=== PATIENT | male | born 1940 | race Caucasian/White ===

== ENCOUNTER → 2017-07-09 | Outpatient (CLI) | payer MEDICARE, OTHER ==
[~2017-07-09] MED LIST: ASPI81TA28 PO; ATEN-175 PO; ATOR10TA88 PO; CIPR-255 PO; CPR/500 PO; FINA5TAB PO; HYDR-4330 PO; LATA0.5S OP; LISI-789 PO; METF-384 PO; METR-163 PO; MULT-190 PO; NVLNI SC; OMEG10007 PO; PHEN32.44 PO; SULF400T7 PO; novofine INJ
[2017-07-10 13:05] LABS: URINE APPEARANCE TURBID (CLEAR); URINE BILIRUBIN NEG (NEG); URINE COLOR YELLOW; URINE EPITHELIAL CELL AUTO >30 /lpf (0-5); URINE NITRITE NEG (NEG); URINE SPECIFIC GRAVITY 1.033 (1.000-1.030); UROBILINOGEN NEG (NEG)
[2017-07-10 13:14] LABS: MANUAL MICROSCOPIC REQUIRED? NO; REVIEW REQ? YES
[2017-07-10 13:31] LABS: URINE PATH CASTS 0-3 GRANULAR CASTS /lpf (0)
== END | disposition home or self-care (01) ==
LOC: C.PATHSPEC 11:00
PROVIDERS: ATTEND Urology
DX: R31.0 Gross hematuria (principal)

== ENCOUNTER 2017-07-14 18:20 | Inpatient (IN) | payer MEDICARE, OTHER ==
[~2017-07-14] VITALS: Ht 182.9 cm; Wt 69.5 kg
[~2017-07-14 18:20] MED LIST changes: -ASPI81TA28 PO; -ATEN-175 PO; -ATOR10TA88 PO; -CIPR-255 PO; -FINA5TAB PO; -HYDR-4330 PO; -LATA0.5S OP; -LISI-789 PO; -METF-384 PO; -METR-163 PO; -MULT-190 PO; -NVLNI SC; -OMEG10007 PO; -PHEN32.44 PO; -SULF400T7 PO; -novofine INJ
[2017-07-14] MEDS ORDERED: OPTIRAY 320 IV PRN (20:00)
[2017-07-14 20:36] LABS: HEMATOCRIT 29.1 % (42-52); MEAN CELL VOLUME 81.1 fL (80-100); MEAN CORPUSCULAR HEMOGLOBIN 27.3 pg (25-34); MEAN CORPUSCULAR HGB CONC 33.7 g/dl (32-36); MEAN PLATELET VOLUME 8.4 fL (7.4-10.4); PLATELET COUNT 228 K/uL (130-400); RED BLOOD COUNT 3.59 M/uL (4.7-6.1); WHITE BLOOD COUNT 9.57 K/uL (4.8-10.8)
[2017-07-14 20:53] LABS: BUN/CREATININE RATIO 17.6 (10-20); CALCIUM 8.7 mg/dl (8.5-10.1); CREATININE 0.84 mg/dl (0.60-1.40); POTASSIUM 4.7 mmol/L (3.5-5.1)
[2017-07-14 20:53] LABS: ISTAT CREATININE 0.8 mg/dl (0.6-1.3); ISTAT HEMOGLOBIN 9.9 g/dl (14.0-18.0); ISTAT IONIZED CALCIUM 1.15 mmol/l (1.12-1.32)
[2017-07-14] MEDS ORDERED: CEFTRIAXONE SOD INJ 1 GM ADDVIAL IV STA (20:56)
[2017-07-14 21:05] LABS: ACANTHOCYTES 1+; BASO % 0.4 %; BASO ABS # 0.04 K/uL (0-0.2); COMPLETE YES; EOS % 1.4 %; IG% 0.4 %; LYMPH % 20.6 %; LYMPH ABS # 1.97 K/uL (1.2-3.4); MONO % 8.7 %; NEUT % 68.5 %
[2017-07-14 21:09] LABS: URINE APPEARANCE TURBID (CLEAR); URINE COLOR DK YELLOW; URINE EPITHELIAL CELL AUTO >30 /lpf (0-5); URINE NITRITE NEG (NEG); UROBILINOGEN NEG (NEG); ZZUR CULT IF INDIC CLEAN CATCH YES
[2017-07-14 21:17] LABS: MANUAL MICROSCOPIC REQUIRED? NO; REVIEW REQ? NO
[2017-07-14 21:18] LABS: URINE BILIRUBIN NEG (NEG)
--- NOTE | 2017-07-14 22:08 | DIAGNOSTIC IMAGING REPORT ---
CT OF THE ABDOMEN AND PELVIS WITH CONTRAST CLINICAL HISTORY: Abdominal pain. COMPARISON STUDY: None. TECHNIQUE: Following IV administration of 94 mL of Optiray-320, axial images of the abdomen and pelvis were obtained from the lung bases to the proximal femurs. Images were reviewed in the axial, sagittal, and coronal planes. IV contrast was administered without complication. A dose lowering technique was utilized adhering to the principles of ALARA. CT DOSE: 282.18 mGy.cm FINDINGS: An 8 mm hypodense lateral segment hepatic lesion likely reflects a cyst. The spleen, adrenal glands, kidneys and pancreas are unremarkable with exception of mild bilateral collecting system dilatation. There is mild dilatation of the distal right ureter. There is apparent wall thickening or hyperdense material within the distal right ureter with focal dilatation. Bladder calculi measure up to 1.2 cm. Note is made of moderate wall thickening of the posterior aspect of the bladder with adjacent infiltration and a gas and fluid containing tract which likely extends from the sigmoid colon. There is extensive sigmoid diverticulosis. Note is made of a 6.2 x 5.3 cm thick-walled stool-containing abnormality along the left lateral aspect of the sigmoid colon. This contained round hyperdense foci. There is no free air. No suspicious osseous lesions are present. Prostate is mildly enlarged. There is extensive atherosclerotic plaque of the abdominal aorta. IMPRESSION: 1. Extensive sigmoid diverticulosis with mild pericolonic infiltration which suggests acute diverticulitis. Thick walled 6.2 x 5.3 cm stool containing abnormality along the left lateral aspect of the sigmoid colon which could reflect a giant sigmoid diverticulum or less likely walled off abscess. A few adjacent gas and fluid containing abnormalities, one of which extends to the posterior wall of the bladder and is suspicious for a developing colovesicular fistula. Associated moderate posterior bladder wall thickening. 2. Multiple bladder calculi. Mild bilateral collecting system dilatation and focal dilatation of the distal right ureter. Apparent thickening versus hyperdense material within the distal right ureter. This finding is nonspecific and may be infectious however a urothelial lesion could appear similar. This could be correlated with urinalysis and urine cytology. 3. Mild enlargement of the prostate. Electronically signed by: Kamari Carney M.D. 07/14/2017 10:07 PM Dictated Date/Time: 07/14/2017 9:52 PM
[2017-07-14] MEDS ORDERED: HYDROmorphone INJ 1 MG/ML SYR IV STA (22:09)
[2017-07-14] MEDS ORDERED: HYDROmorphone INJ 0.5 MG/0.5 ML SYR ONE (22:18)
[2017-07-14] MEDS ORDERED: METRONIDAZOLE 500MG / 100ML NSS IV STA (22:18)
[2017-07-14] MEDS ORDERED: ATOR10TA88 PO (23:02)
[2017-07-14] MEDS ORDERED: ASPI81TA28 PO (23:02)
[2017-07-14] MEDS ORDERED: ATEN-175 PO (23:02)
[2017-07-14] MEDS ORDERED: LATA0.5S OP (23:03)
[2017-07-14] MEDS ORDERED: LISI-789 PO (23:03)
[2017-07-14] MEDS ORDERED: OMEG10007 PO (23:03)
[2017-07-14] MEDS ORDERED: METF-384 PO (23:03)
[2017-07-14] MEDS ORDERED: FINA5TAB PO (23:03)
[2017-07-14] MEDS ORDERED: PHEN32.44 PO (23:05)
[2017-07-14] MEDS ORDERED: MULT-190 PO (23:05)
[2017-07-14] MEDS ORDERED: HYDR-4330 PO (23:05)
[2017-07-14] MEDS ORDERED: SULF400T7 PO (23:07)
[2017-07-14] MEDS ORDERED: novofine INJ (23:09)
--- NOTE | 2017-07-14 23:14 | EMERGENCY ROOM VISIT NOTE ---
History Report prepared by Marijaibchang: Mariana Saucedo Under the Supervision of: Dr. Jose Albert D.O. First contact with patient: 19:38 Chief Complaint: URINARY SYMPTOMS Stated Complaint: UTI Nursing Triage Summary: C/o pain from navel to groin, hurts to stand and pain with urination. Currently on ABX. On cirpro and taking Charlotte for pain. History of Present Illness The patient is a 76 year old male who presents to the Emergency Room with complaints of persistent urinary symptoms for the past 3 weeks. He is accompanied by his and daughter. He has been experiencing increased urinary frequency, incomplete emptying and dysuria for the past 3 weeks. He initially saw the [facility] in [place] and was placed on Bactrim, which he has been taking for the past 3 weeks. Last week, he saw. Dr. Grijalva and had a urine sample taken. This past Friday, 2 days ago, the patient was seen at [facility], in [place], [place] and placed on Cipro for a UTI. Since then , he has developed pain in his abdomen, from his navel to his groin. He has tried taking Charlotte with no relief. Pt denies headache, change in vision, fevers , chest pain, shortness of breath, nausea, vomiting, diarrhea, melena or penile discharge. 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 A total of 10 systems reviewed and were otherwise negative. 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 (2) History of recurrent UTI (urinary tract infection) Social History Smoking Status: Current Every Day Smoker Alcohol Use: occasionally Drug Use: none Marital Status: Housing Status: lives with family Occupation Status: retired Current/Historical Medications Scheduled Aspirin (Aspirin Ec), 81 MG PO DAILY Atenolol (Tenormin), 100 MG PO DAILY Atorvastatin (Lipitor), 10 MG PO DAILY Ciprofloxacin (Ciprofloxacin HCl), 500 MG PO BID Finasteride (Proscar), 5 MG PO DAILY Fish Oil (Dexter-3), 1,200 MG PO DAILY Latanoprost (Xalatan 0.005% Oph Heidi), 1 DROPS OP HS Lisinopril (Zestril), 2.5 MG PO DAILY Metformin Hcl (Glucophage), 1,000 MG PO BID Ocuvite Preservision (Ocuvite Preservision), 1 TAB PO BID Phenobarbital (Phenobarbital), 2 TABS PO BID Sulfamethoxazole-Trimethoprim (Bactrim 400MG/80MG), 1 TAB PO DAILY [novofine], 8 UNITS INJ DAILY Scheduled PRN Hydrocodone-Acetaminophen (Lortab 5-325 mg), 1 TAB PO QID PRN for Pain Allergies Coded Allergies: Penicillins (Verified Allergy, Unknown, HIVES, 07/14/17) Physical Exam Vital Signs Date Time Temp Pulse Resp B/P (MAP) Pulse Ox O2 Delivery O2 Flow Rate FiO2 07/14/17 22:31 70 20 132/73 07/14/17 20:59 75 20 127/55 07/14/17 18:51 37.2 63 16 107/53 92 Room Air Physical Exam GENERAL: Patient is sitting up in bed, alert, disheveled appearing, well nourished, no distress, non-toxic EYE EXAM: normal conjunctiva OROPHARYNX: no exudate, no erythema, lips, buccal mucosa, and tongue normal and mucous membranes are moist NECK: supple, no nuchal rigidity, no adenopathy, non-tender LUNGS: Clear to auscultation. Normal chest wall mechanics HEART: no murmurs, S1 normal and S2 normal ABDOMEN: abdomen soft, minimal tenderness in suprapubic region, normo-active bowel sounds, no masses, no rebound or guarding. BACK: Back is symmetrical on inspection and there is no deformity, no midline tenderness, no CVA tenderness. SKIN: no rashes and no bruising UPPER EXTREMITIES: upper extremities are grossly normal. LOWER EXTREMITIES: No pitting edema. NEURO EXAM: Normal sensorium, cranial nerves II-XII intact, normal speech, no weakness of arms, no weakness of legs. Gross sensation intact. Medical Decision & Procedures ER Provider Diagnostic Interpretation: Radiology results as stated below per my review and the radiologist's interpretation: CT OF THE ABDOMEN AND PELVIS WITH CONTRAST CLINICAL HISTORY: Abdominal pain. COMPARISON STUDY: None. TECHNIQUE: Following IV administration of 94 mL of Optiray-320, axial images of the abdomen and pelvis were obtained from the lung bases to the proximal femurs. Images were reviewed in the axial, sagittal, and coronal planes. IV contrast was administered without complication. A dose lowering technique was utilized adhering to the principles of ALARA. CT DOSE: 282.18 mGy.cm FINDINGS: An 8 mm hypodense lateral segment hepatic lesion likely reflects a cyst. The spleen, adrenal glands, kidneys and pancreas are unremarkable with exception of mild bilateral collecting system dilatation. There is mild dilatation of the distal right ureter. There is apparent wall thickening or hyperdense material within the distal right ureter with focal dilatation. Bladder calculi measure up to 1.2 cm. Note is made of moderate wall thickening of the posterior aspect of the bladder with adjacent infiltration and a gas and fluid containing tract which likely extends from the sigmoid colon. There is extensive sigmoid diverticulosis. Note is made of a 6.2 x 5.3 cm thick-walled stool-containing abnormality along the left lateral aspect of the sigmoid colon. This contained round hyperdense foci. There is no free air. No suspicious osseous lesions are present. Prostate is mildly enlarged. There is extensive atherosclerotic plaque of the abdominal aorta. IMPRESSION: 1. Extensive sigmoid diverticulosis with mild pericolonic infiltration which suggests acute diverticulitis. Thick walled 6.2 x 5.3 cm stool containing abnormality along the left lateral aspect of the sigmoid colon which could reflect a giant sigmoid diverticulum or less likely walled off abscess. A few adjacent gas and fluid containing abnormalities, one of which extends to the posterior wall of the bladder and is suspicious for a developing colovesicular fistula. Associated moderate posterior bladder wall thickening. 2. Multiple bladder calculi. Mild bilateral collecting system dilatation and focal dilatation of the distal right ureter. Apparent thickening versus hyperdense material within the distal right ureter. This finding is nonspecific and may be infectious however a urothelial lesion could appear similar. This could be correlated with urinalysis and urine cytology. 3. Mild enlargement of the prostate. Electronically signed by: Kamari Carney M.D. 07/14/2017 10:07 PM Laboratory Results 07/14/17 20:05 Red Blood Count 3.59, Mean Corpuscular Volume 81.1, Mean Corpuscular Hemoglobin 27.3, Mean Corpuscular Hemoglobin Concent 33.7, Mean Platelet Volume 8.4, Neutrophils (%) (Auto) 68.5, Lymphocytes (%) (Auto) 20.6, Monocytes (%) (Auto) 8.7, Eosinophils (%) (Auto) 1.4, Basophils (%) (Auto) 0.4, Neutrophils # (Auto) 6.56, Lymphocytes # (Auto) 1.97, Monocytes # (Auto) 0.83, Eosinophils # (Auto) 0.13, Basophils # (Auto) 0.04 07/14/17 20:05 Test 07/14/17 00:00 07/14/17 20:05 07/14/17 20:39 07/14/17 22:53 Urine Color DK YELLOW Urine Appearance TURBID (CLEAR) Urine pH 5.0 (4.5-7.5) Urine Specific [place] 1.020 (1.000-1.030) Urine Protein 1+ (NEG) Urine Glucose (UA) NEG (NEG) Urine Ketones NEG (NEG) Urine Occult Blood 1+ (NEG) Urine Nitrite NEG (NEG) Urine Bilirubin NEG (NEG) Urine Urobilinogen NEG (NEG) Urine Leukocyte Esterase LARGE (NEG) Urine WBC (Auto) >30 /hpf (0-5) Urine RBC (Auto) 5-10 /hpf (0-4) Urine Hyaline Casts (Auto) 1-5 /lpf (0-5) Urine Epithelial Cells (Auto) >30 /lpf (0-5) Urine Bacteria (Auto) 4+ (NEG) White Blood Count 9.57 K/uL (4.8-10.8) Red Blood Count 3.59 M/uL (4.7-6.1) Hemoglobin 9.8 g/dL (14.0-18.0) Hematocrit 29.1 % (42-52) Mean Corpuscular Volume 81.1 fL (80-100) Mean Corpuscular Hemoglobin 27.3 pg (25-34) Mean Corpuscular Hemoglobin Concent 33.7 g/dl (32-36) Platelet Count 228 K/uL (130-400) Mean Platelet Volume 8.4 fL (7.4-10.4) Neutrophils (%) (Auto) 68.5 % Lymphocytes (%) (Auto) 20.6 % Monocytes (%) (Auto) 8.7 % Eosinophils (%) (Auto) 1.4 % Basophils (%) (Auto) 0.4 % Neutrophils # (Auto) 6.56 K/uL (1.4-6.5) Lymphocytes # (Auto) 1.97 K/uL (1.2-3.4) Monocytes # (Auto) 0.83 K/uL (0.11-0.59) Eosinophils # (Auto) 0.13 K/uL (0-0.5) Basophils # (Auto) 0.04 K/uL (0-0.2) RDW Standard Deviation 49.5 fL (36.4-46.3) RDW Coefficient of Variation 16.5 % (11.5-14.5) Immature Granulocyte % (Auto) 0.4 % Immature Granulocyte # (Auto) 0.04 K/uL (0.00-0.02) Acanthocytes 1+ Est Creatinine Clear Calc Drug Dose 74.8 ml/min Estimated GFR () 97.2 Estimated GFR (Non- 83.9 BUN/Creatinine Ratio 17.6 (10-20) Calcium Level 8.7 mg/dl (8.5-10.1) Total Bilirubin 0.2 mg/dl (0.2-1) Direct Bilirubin 0.1 mg/dl (0-0.2) Aspartate Amino Transf (AST/SGOT) 10 U/L (15-37) Alanine Aminotransferase (ALT/SGPT) 14 U/L (12-78) Alkaline Phosphatase 79 U/L (45-117) Total Protein 7.1 gm/dl (6.4-8.2) Albumin 2.6 gm/dl (3.4-5.0) Lipase 106 U/L (73-393) Bedside Hemoglobin 9.9 g/dl (14.0-18.0) Bedside Hematocrit 29 % (42-52) Bedside Sodium 131 mEq/L (135-144) Bedside Potassium 4.7 mEq/L (3.3-5.0) Bedside Chloride 95 mEq/L (101-112) Bedside Total CO2 24 mEq/l (24-31) Anion Gap 18.0 mmol/L (16-25) Bedside Blood Urea Nitrogen 16 mg/dl (7-18) Bedside Creatinine 0.8 mg/dl (0.6-1.3) Bedside Glucose (other) 154 mg/dl (70-99) Bedside Ionized Calcium (Adeola) 1.15 mmol/l (1.12-1.32) Laboratory results per my review. Medications Administered Medications (Trade) Dose Ordered Sig/Sarthak Route Start Time Stop Time Status Last Admin Dose Admin Ceftriaxone Sodium (Rocephin Inj) 1 gm NOW STAT IV 07/14/17 20:56 07/14/17 20:57 DC 07/14/17 21:12 1 GM Hydromorphone HCl (Dilaudid Inj) 0.5 mg STK-MED ONCE .ROUTE 07/14/17 22:18 07/14/17 22:19 DC 07/14/17 22:25 0.5 MG Metronidazole (Flagyl / Nss) 500 mg NOW STAT IV 07/14/17 22:18 07/14/17 22:19 DC 07/14/17 22:31 500 MG ED Course ED COURSE: Vital signs were reviewed and showed normal vitals. The patients medical record was reviewed The above diagnostic studies were performed and reviewed. ED treatments and interventions as stated above. 1940: The patient was evaluated in room C7. A complete history and physical examination was performed. 1999: A urine culture taken on 07/10 showed greater than 1000 lactobacilli cells. 2055: Rocephin 1 gm IV. 2204: I reevaluated the patient. He is resting comfortably. 0: I discussed the patients case with Dr. Hernandez, [facility] General Surgery. The patient will be further evaluated. 2234: I discussed the patients case with Dr. Ibarra, [facility] Hospitalist. The patient will be further evaluated. 0: Upon reevaluation, the patient is feeling well and resting comfortably. I discussed my findings with the patient and he understands and agrees with the treatment plan. Based on the patients age, coexisting illnesses, exam and lab findings the decision to treat as an inpatient was made. The patient remained stable while under my care. The patient will be evaluated for further management. Medical Decision Differential diagnoses includes but is not limited to gastritis, peptic ulcer disease, GERD, gallbladder disease, pancreatitis, small bowel obstruction, acute coronary syndrome, pericarditis, ischemic bowel, irritable bowel disease, irritable bowel syndrome, appendicitis, diverticulitis, malignancy, hernia, urinary tract infection, torsion, perforation, trauma, infectious. Patient is a 76-year-old male who presents with dysuria, urinary frequency and urinary urgency for the past 3 weeks. The symptoms have been worsening. He's been on Bactrim for 3 weeks and recently started on Cipro. Recent urine culture from the shows greater than 100,000 lactobacillus. Patient was given a dose of IV Rocephin. CT of the abdomen and pelvis was performed with the persistent pain on antibiotics and shows diverticulitis along with a likely fistula from the colon to the bladder. I do favor this likely cause of his UTI at this time. Patient was given broad-spectrum antibiotics. Case was discussed with general surgery and internal medicine. Family was updated at bedside. Patient was admitted for further workup. Medication Reconcilliation Current Medication List: was personally reviewed by me Blood Pressure Screening Patient's blood pressure: Low blood pressure Low blood pressure felt to be situational. Consults Time Called: 2211 Consulting Physician: Dr. Hernandez [facility] General Surgery Returned Call: 2219 I discussed the patients case with Dr. Hernandez [facility]. The patient will be further evaluated. Additional Consults: Time Called: 2219 Consulted Physician: Dr. Ibarra [facility] Hospitalist Returned Call: [phone] Additional Comments: I discussed the patients case with Dr. Hernandez [facility]. The patient will be further evaluated. Impression Primary Impression: Diverticulitis Additional Impressions: [place]-vesical fistula UTI (urinary tract infection) Scribe Attestation The scribe's documentation has been prepared under my direction and personally reviewed by me in its entirety. I confirm that the note above accurately reflects all work, treatment, procedures, and medical decision making performed by me. Departure Information Dispostion Being Evaluated By Hospitalist Referrals No Doctor, Assigned (PCP) Patient Instructions My [facility] [address] Problem Qualifiers Primary Impression: Diverticulitis Diverticulitis site: large intestine Diverticulitis bleeding: unspecified bleeding status Diverticulitis complication: unspecified complication status Qualified Codes: K57.32 - Diverticulitis of large intestine without perforation or abscess without bleeding Additional Impressions: UTI (urinary tract infection) Urinary tract infection type: site unspecified Hematuria presence: with hematuria Qualified Codes: N39.0 - Urinary tract infection, site not specified ; R31.9 - Hematuria, unspecified
[2017-07-14 23:34] LABS: MAGNESIUM 1.5 mg/dl (1.8-2.4)
[2017-07-15] MEDS ORDERED: SODIUM CHLORIDE 0.9% 1000ML 1,000 ML IV ONE (00:15)
[2017-07-15] MEDS ORDERED: HYDROCODONE/ACETAMOPHEN 5/325MG TAB PO PRN (00:15)
[2017-07-15] MEDS ORDERED: GLUCOSE 10 TABS/TUBE PO PRN (00:15)
[2017-07-15] MEDS ORDERED: GLUCOSE 40% GEL 15 GM TUBE PO PRN (00:15)
[2017-07-15] MEDS ORDERED: DEXTROSE 50% 50 ML SYR IV PRN (00:15)
[2017-07-15] MEDS ORDERED: ONDANSETRON INJ 2 MG/ML 2 ML VIAL IV PRN (00:15)
[2017-07-15] MEDS ORDERED: GLUCAGON FOR INJ 1 MG VIAL SQ PRN (00:15)
[2017-07-15] MEDS ORDERED: MoRPHine SULFATE 4 MG/ML 1 ML CARP\\VIAL IV PRN (00:15)
[2017-07-15 00:25] VITALS: BP 146/78; TEMP 36.7; O2SAT 100
[2017-07-15 00:28] VITALS: BP 146/78; PULSE 66; TEMP 36.7; Ht 182.9 cm; Wt 69.5 kg
[2017-07-15] MEDS: MAGNESIUM SULFATE 1GM / D5W 1 GM in PREMIXED IN D5W 100 ML IV SCH ×2 (01:11→01:45)
--- NOTE | 2017-07-15 04:31 | HISTORY & PHYSICAL EXAMINATION ---
DATE OF ADMISSION: 07/14/2017 PRIMARY CARE DOCTOR: Jakob Castaneda PA-C at [facility], [place], [place] CHIEF COMPLAINT: Abdominal pain. HISTORY OF PRESENT ILLNESS: History obtained from px and ER MD. Medical history is significant for hypertension, CAD status post stenting, ongoing tobacco abuse, DM2 insulin requiring, BPH, glaucoma, seizure DSO, and recurrent UTIs. As per patient, he has had recurrent urinary tract infections in the past 4 years. He has seen urologists in the past. Recurrent UTI symptoms attributed to "getting old" as per patient account. In the last month, worsening achy lower abdominal pain with nausea, good bowel movement. No diarrhea. No bloody stools as per patient. Weight loss attributed to diabetes. Admits to dysuria. No fever no chills. Two antibiotic courses this month. Px was seen at [facility] a few days ago. Sent home on additional antibiotics. Patient brought to the Emergency Room for worsening symptoms. CAT scan showed extensive sigmoid diverticulosis with mild pericolonic infiltration suggestive of acute diverticulitis. A 6.2 x 5.8 stool containing abnormality on the L sigmoid colon (giant sigmoid diverticulum or less likelihood of abscess). Developing colovesicular fistula, posterior bladder wall thickening, mild enlargement of the prostate, multiple bladder calculi. Patient received Ceftriaxone and Flagyl in the ER. MEDICAL HISTORY: As above. The patient had a colonoscopy about 4 years ago, normal as per patient. MEDICATIONS: Include aspirin, atenolol, Lipitor, Cipro, Proscar, omega, nalbuphine, Lortab, Xalatan, Zestril, metformin, Ocuvite, phenobarbital. ALLERGIES: PENICILLIN. FAMILY HISTORY: Hypertension. PERSONAL AND SOCIAL HISTORY: A few cigarettes at night. No chronic intake of alcoholic beverages. Lives with . war . REVIEW OF SYSTEMS: As per HPI, all other ROS negative.. PHYSICAL EXAMINATION: VITAL SIGNS: Blood pressure was noted to be 107/50, pulse rate 60, respiratory rate 18, T 37 sats 92 on room air. GENERAL: Noted to be comfortable, no respiratory distress. SKIN: Pallor. HEENT: Pale palpebral conjunctivae. Dry mucosa. Chronic ptosis on the left eye. NECK: No JVD. Supple. CHEST: Clear to auscultation. HEART: Regular rate and rhythm. ABDOMEN: Hypogastric tenderness. EXTREMITIES: No edema, nontender. NEUROLOGIC: No gross focality except for ptosis on the left eye. LABS: Hemoglobin was noted to be 9.8, hematocrit 39.1, white cell count 9.5, platelets 228. Sodium 131, potassium 4.7, chloride 98, CO2 of 26, BUN 15, creatinine 0.8, glucose 149. CT abdomen and pelvis as above. UA showed large WBC est positive. ASSESSMENT: 1. Complicated diverticulitis complicated urinary tract infection secondary to possible colovesical fistula (recurrent urinary tract infection symptoms over the last 4 years as per patient account) No sepsis. 2. Hypertension, blood pressure on the lower side. 3. Anemia, unknown baseline and duration. Patient unaware of previous diagnosis. 4. Coronary artery disease status post stenting. 5. DM2 on insulin requiring, Currently normoglycemic unknown baseline control. 6. seizure DSO, stable on Phenobarbital 7. Ongoing tobacco abuse. PLAN: GMF Clear liquids for now. Follow urine cultures. Ceftriaxone, Flagyl. Surgery consult for complicated diverticulitis. (ER provider already touch with Dr. Hernandez.) Urology consult for complicated UTI, abn CT. Ppatient known to [facility].) The Px will likely need future surgical evaluation at a tertiary center. Obtain records from PCP's office. Anemia workup. Patient however refuses blood transfusion. ISS BG goal 140-180. Check hemoglobin A1c. DVT prophylaxis, SCDs. Re anemia until GI bleed ruled out. Full code. MTDD
[2017-07-15 06:27] LABS: ESTIMATED AVERAGE GLUCOSE 160 mg/dl; HA1C FLAG Normal (Normal)
[2017-07-15] MEDS: INSULIN ASPART 100 UNITS/ML 3 ML PEN SC SCH ×5 (07:00→21:24)
[2017-07-15 07:55] VITALS: BP 138/68; PULSE 65; TEMP 36.7; O2SAT 95
[2017-07-15 08:00] VITALS: O2SAT 95
[2017-07-15] MEDS: METRONIDAZOLE / NSS 500 MG in PREMIXED NSS 100 ML IV SCH ×2 (08:10→15:31)
[2017-07-15] MEDS: PHENOBARBITAL 32.4 MG TAB PO SCH ×2 (08:10→19:55)
[2017-07-15] MEDS: CEROVITE ADV FORMULA TAB PO SCH ×4 (08:11→19:58)
[2017-07-15] MEDS ORDERED: LISINOPRIL 2.5 MG TAB PO SCH (09:00)
[2017-07-15] MEDS ORDERED: ATORVASTATIN 10 MG TAB PO SCH (09:00)
[2017-07-15] MEDS ORDERED: FINASTERIDE 5 MG TAB PO SCH (09:00)
[2017-07-15 12:25] LABS: BASO % 0.6 %; BASO ABS # 0.04 K/uL (0-0.2); COMPLETE YES; EOS % 1.4 %; HEMATOCRIT 28.7 % (42-52); IG% 0.3 %; LYMPH % 18.7 %; LYMPH ABS # 1.31 K/uL (1.2-3.4); MEAN CORPUSCULAR HEMOGLOBIN 26.9 pg (25-34); MEAN CORPUSCULAR HGB CONC 32.8 g/dl (32-36); MEAN PLATELET VOLUME 8.3 fL (7.4-10.4); MONO % 10.4 %; NEUT % 68.6 %; PLATELET COUNT 233 K/uL (130-400); WHITE BLOOD COUNT 7.02 K/uL (4.8-10.8)
[2017-07-15 12:45] LABS: BUN/CREATININE RATIO 13.4 (10-20); CALCIUM 8.7 mg/dl (8.5-10.1); CREATININE 0.79 mg/dl (0.60-1.40); POTASSIUM 4.6 mmol/L (3.5-5.1)
--- NOTE | 2017-07-15 12:54 | Surgery Consultation ---
Consultation Date of Consultation: Jul 15, 2017. Attending Physician: Fernando Atkinson MD Reason for Consultation: Diverticulitis, colovesicular fistula History of Present Illness Rohit is a 76 year-old male who presented to emergency department yesterday with complaint of increasing abdominal pain. Rohit has significant history of recurrent UTI in the last 4 years with intermittent abdominal pain. States he usually will get a UTI every 6 months. In the past 4 months he has noticed increasing lower abdominal discomfort. States his bowel movements are regular. Denies blood in stools or black/tarry stools. Last colonoscopy was about 4 years ago and was normal. Denies of any previous history of diverticulitis. He was seen at [facility] in the emergency department on Friday and was sent home with Cipro and Pyridium. States the pain increased and that is why he came to the hospital again. Denies fever, chills, nausea, vomiting, vomiting blood, changes in bowel habits, diarrhea, constipation, blood in stools , air during urinating or stool in urine. Denies of any previous abdominal surgery. Denies of any blood thinning agents. He had a CT scan of abdomen and pelvis in the emergency department which showed : "Extensive sigmoid diverticulosis with mild pericolonic infiltration which suggests acute diverticulitis. Thick walled 6.2 x 5.3 cm stool containing abnormality along the left lateral aspect of the sigmoid colon which could reflect a giant sigmoid diverticulum or less likely walled off abscess. A few adjacent gas and fluid containing abnormalities, one of which extends to the posterior wall of the bladder and is suspicious for a developing colovesicular fistula. Associated moderate posterior bladder wall thickening." His labs showed no leukocytosis Past Medical/Surgical History Medical Problems: (1) [place]-vesical fistula Status: Acute (2) Diverticulitis Status: Acute (3) UTI (urinary tract infection) Status: Acute Social History Smoking Status: Current Every Day Smoker Drug Use: none Marital Status: Housing Status: lives with family Occupation Status: retired Allergies Coded Allergies: Penicillins (Verified Allergy, Unknown, HIVES, 07/14/17) Home Medications Scheduled Aspirin (Aspirin Ec), 81 MG PO DAILY Atenolol (Tenormin), 100 MG PO DAILY Atorvastatin (Lipitor), 10 MG PO DAILY Ciprofloxacin (Ciprofloxacin HCl), 500 MG PO BID Finasteride (Proscar), 5 MG PO DAILY Fish Oil ([place]-3), 1,200 MG PO DAILY Latanoprost (Xalatan 0.005% Oph Heidi), 1 DROPS OP HS Lisinopril (Zestril), 2.5 MG PO DAILY Metformin Hcl (Glucophage), 1,000 MG PO BID Ocuvite Preservision (Ocuvite Preservision), 1 TAB PO BID Phenobarbital (Phenobarbital), 2 TABS PO BID Sulfamethoxazole-Trimethoprim (Bactrim 400MG/80MG), 1 TAB PO DAILY [novofine], 8 UNITS INJ DAILY Scheduled PRN Hydrocodone-Acetaminophen (Lortab 5-325 mg), 1 TAB PO QID PRN for Pain Current Inpatient Medications Current Inpatient Medications Medications (Trade) Dose Ordered Sig/Sarthak Route Start Time Stop Time Status Last Admin Dose Admin Ioversol (Optiray 320) 100 ml UD PRN IV 07/14/17 20:00 07/18/17 19:59 Acetaminophen (Tylenol Tab) 650 mg Q4H PRN PO 07/15/17 00:15 08/14/17 00:14 Insulin Aspart (novoLOG ASPART) SLIDING SCALE If C... ACHS SC 07/15/17 07:00 08/14/17 06:59 07/15/17 11:50 1 UNITS Glucose (Glucose 40% Gel) 15-30 GRAMS 15 GRAMS... UD PRN PO 07/15/17 00:15 08/14/17 00:14 Glucose (Glucose Chew Tab) 4-8 Tablets 4 Tabl... UD PRN PO 07/15/17 00:15 08/14/17 00:14 Dextrose (Dextrose 50% 50ML Syringe) 25-50ML OF 50% DW IV FOR... UD PRN IV 07/15/17 00:15 08/14/17 00:14 Glucagon (Glucagon Inj) 1 mg UD PRN SQ 07/15/17 00:15 08/14/17 00:14 Morphine Sulfate (MoRPHine SULFATE INJ) 4 mg Q3H PRN IV 07/15/17 00:15 07/29/17 00:14 Ondansetron HCl (Zofran Inj) 4 mg Q6H PRN IV 07/15/17 00:15 08/14/17 00:14 Sodium Chloride 1,000 ml @ 60 mls/hr [id number] ONCE IV 07/15/17 00:15 07/15/17 16:54 07/15/17 01:10 60 MLS/HR Atenolol (Tenormin Tab) 100 mg DAILY PO 07/15/17 09:00 08/14/17 08:59 07/15/17 08:11 100 MG Atorvastatin Calcium (Lipitor Tab) 10 mg DAILY PO 07/15/17 09:00 08/14/17 08:59 07/15/17 08:10 10 MG Finasteride (Proscar Tab) 5 mg DAILY PO 07/15/17 09:00 08/14/17 08:59 07/15/17 08:11 5 MG Latanoprost (Xalatan Oph Soln) 1 drops HS OP 07/15/17 21:00 08/14/17 20:59 Lisinopril (Zestril Tab) 2.5 mg DAILY PO 07/15/17 09:00 08/14/17 08:59 07/15/17 08:11 2.5 MG Multivitamins/ Minerals (Multivitamin W/ Minerals Tab) 1 tab BID PO 07/15/17 09:00 08/14/17 08:59 Phenobarbital (Phenobarbital Tab) 64.8 mg BID PO 07/15/17 08:00 08/14/17 07:59 07/15/17 08:10 64.8 MG Acetaminophen/ Hydrocodone Bitart ([place] 5/325 Tab) 1 tab Q4H PRN PO 07/15/17 00:15 07/29/17 00:14 Ceftriaxone Sodium 1 gm/ Dextrose 50 ml @ 100 mls/hr Q24H IV 07/15/17 21:00 07/25/17 20:59 Metronidazole 500 mg/Prmx 100 ml @ 100 mls/hr Q8H IV 07/15/17 08:00 07/25/17 07:59 07/15/17 08:10 100 MLS/HR Review of Systems Constitutional: + weakness, + fatigue, No fever, No chills, No sweats Respiratory: No cough, No shortness of breath Cardiovascular: No chest pain Abdomen: + pain, No nausea, No vomiting, No diarrhea, No constipation, No GI bleeding Genitourinary - Male: + dysuria, + problem reported (denies air in the urine or stool), No penile discharge Endocrine: + fatigue Integumentary: No rash Physical Exam Date Time Temp Pulse Resp B/P (MAP) Pulse Ox O2 Delivery O2 Flow Rate FiO2 07/15/17 08:00 95 Room Air 07/15/17 07:55 36.7 65 19 138/68 (91) 95 Room Air 07/15/17 06:21 Room Air 07/15/17 00:34 Room Air 07/15/17 00:28 36.7 66 18 146/78 07/15/17 00:25 36.7 18 146/78 (100) 100 Room Air 07/14/17 23:59 71 20 131/47 97 Room Air 07/14/17 22:31 70 20 132/73 07/14/17 20:59 75 20 127/55 07/14/17 18:51 37.2 63 16 107/53 92 Room Air General Appearance: WD/WN, no apparent distress Head: normocephalic, atraumatic Eyes: sclerae normal ENT: hearing grossly normal Respiratory/Chest: no respiratory distress, no accessory muscle use Abdomen/GI: soft, no organomegaly, no pulsatile mass, + tenderness (LLQ on deep palpation) Back: normal inspection Extremities/Musculoskelatal: normal inspection Neurologic/Psych: alert, oriented x 3 Skin: normal color, warm/dry, no rash Laboratory Results Last 24 Hours Test 07/14/17 20:05 07/14/17 20:39 07/15/17 00:51 07/15/17 04:44 White Blood Count 9.57 K/uL Red Blood Count 3.59 M/uL Hemoglobin 9.8 g/dL Hematocrit 29.1 % Mean Corpuscular Volume 81.1 fL Mean Corpuscular Hemoglobin 27.3 pg Mean Corpuscular Hemoglobin Concent 33.7 g/dl Platelet Count 228 K/uL Mean Platelet Volume 8.4 fL Neutrophils (%) (Auto) 68.5 % Lymphocytes (%) (Auto) 20.6 % Monocytes (%) (Auto) 8.7 % Eosinophils (%) (Auto) 1.4 % Basophils (%) (Auto) 0.4 % Neutrophils # (Auto) 6.56 K/uL Lymphocytes # (Auto) 1.97 K/uL Monocytes # (Auto) 0.83 K/uL Eosinophils # (Auto) 0.13 K/uL Basophils # (Auto) 0.04 K/uL RDW Standard Deviation 49.5 fL RDW Coefficient of Variation 16.5 % Immature Granulocyte % (Auto) 0.4 % Immature Granulocyte # (Auto) 0.04 K/uL Acanthocytes 1+ Sodium Level 131 mmol/L Potassium Level 4.7 mmol/L Chloride Level 98 mmol/L Carbon Dioxide Level 26 mmol/L Anion Gap 7.0 mmol/L 18.0 mmol/L Blood Urea Nitrogen 15 mg/dl Creatinine 0.84 mg/dl Est Creatinine Clear Calc Drug Dose 74.8 ml/min Estimated GFR () 97.2 Estimated GFR (Non- 83.9 BUN/Creatinine Ratio 17.6 Random Glucose 149 mg/dl Estimated Average Glucose 160 mg/dl Hemoglobin A1c 7.2 % Calcium Level 8.7 mg/dl Magnesium Level 1.5 mg/dl Total Bilirubin 0.2 mg/dl Direct Bilirubin 0.1 mg/dl Aspartate Amino Transf (AST/SGOT) 10 U/L Alanine Aminotransferase (ALT/SGPT) 14 U/L Alkaline Phosphatase 79 U/L Total Protein 7.1 gm/dl Albumin 2.6 gm/dl Lipase 106 U/L Bedside Hemoglobin 9.9 g/dl Bedside Hematocrit 29 % Bedside Sodium 131 mEq/L Bedside Potassium 4.7 mEq/L Bedside Chloride 95 mEq/L Bedside Total CO2 24 mEq/l Bedside Blood Urea Nitrogen 16 mg/dl Bedside Creatinine 0.8 mg/dl Bedside Glucose (other) 154 mg/dl Bedside Ionized Calcium (Adeola) 1.15 mmol/l Phenobarbital Level 18.1 mcg/mL Transferrin % Saturation % Test 07/15/17 08:10 07/15/17 11:27 07/15/17 12:08 Bedside Glucose 176 mg/dl 225 mg/dl White Blood Count 7.02 K/uL Red Blood Count 3.50 M/uL Hemoglobin 9.4 g/dL Hematocrit 28.7 % Mean Corpuscular Volume 82.0 fL Mean Corpuscular Hemoglobin 26.9 pg Mean Corpuscular Hemoglobin Concent 32.8 g/dl Platelet Count 233 K/uL Mean Platelet Volume 8.3 fL Neutrophils (%) (Auto) 68.6 % Lymphocytes (%) (Auto) 18.7 % Monocytes (%) (Auto) 10.4 % Eosinophils (%) (Auto) 1.4 % Basophils (%) (Auto) 0.6 % Neutrophils # (Auto) 4.82 K/uL Lymphocytes # (Auto) 1.31 K/uL Monocytes # (Auto) 0.73 K/uL Eosinophils # (Auto) 0.10 K/uL Basophils # (Auto) 0.04 K/uL RDW Standard Deviation 49.6 fL RDW Coefficient of Variation 16.5 % Immature Granulocyte % (Auto) 0.3 % Immature Granulocyte # (Auto) 0.02 K/uL Absolute Reticulocyte Count 0.06 10^6/uL Percent Reticulocyte Count 1.7 % Assessment & Plan Complicated Diverticulitis with Colovesicular fistula - vitals stable - no leukocytosis - abdominal examination shows tenderness in LLQ on deep palpation, soft, no rigidity, guarding , or rebound Plan: Given patient's chronic and recurrent UTI, this most likely could be due to colovesicular fistula from chronic diverticulitis. Would recommend transfer to tertiary center for further management by colorectal surgeon and urologist. In the meantime, would continue conservative management: IV fluids, IV antibiotics, clear liquids, and pain management as needed Continue current medical management Will continue to follow Dr. Slaughter has seen and examined patient, agrees with above.
[2017-07-15 12:59] LABS: FERRITIN 125.6 ng/ml (8.0-388.0)
--- NOTE | 2017-07-15 13:47 | Urology Consultation ---
History General Date of Service: Jul 15, 2017. Chief Complaint: abdominal pain Primary Care Physician: Jakob Castaneda PA-C Pt seen a urologist before?: Yes (Dr. Grijalva) If yes, why?: recurrent UTI History of Present Illness 76 yo male presents to [facility] with c/o abdominal pain. Found to have significant diverticulitis on CT with possible colovesical fistula and bladder calculi. He reports abdominal pain and recurrent UTI x 1 month. He did see Dr. Grijalva in our office last week for recurrent UTI. UC&S was negative, and cytology negative for high grade urothelial carcinoma. He is scheduled for outpatient cysto with him in July. The pt reports abdominal pain today, but denies any dysuria, hematuria, or n/v. Repeat UC&S is pending. Imaging Imaging: CT Laboratory Last 24 Hours Test 07/14/17 20:05 07/14/17 20:39 07/15/17 00:51 07/15/17 04:44 White Blood Count 9.57 K/uL Red Blood Count 3.59 M/uL Hemoglobin 9.8 g/dL Hematocrit 29.1 % Mean Corpuscular Volume 81.1 fL Mean Corpuscular Hemoglobin 27.3 pg Mean Corpuscular Hemoglobin Concent 33.7 g/dl Platelet Count 228 K/uL Mean Platelet Volume 8.4 fL Neutrophils (%) (Auto) 68.5 % Lymphocytes (%) (Auto) 20.6 % Monocytes (%) (Auto) 8.7 % Eosinophils (%) (Auto) 1.4 % Basophils (%) (Auto) 0.4 % Neutrophils # (Auto) 6.56 K/uL Lymphocytes # (Auto) 1.97 K/uL Monocytes # (Auto) 0.83 K/uL Eosinophils # (Auto) 0.13 K/uL Basophils # (Auto) 0.04 K/uL RDW Standard Deviation 49.5 fL RDW Coefficient of Variation 16.5 % Immature Granulocyte % (Auto) 0.4 % Immature Granulocyte # (Auto) 0.04 K/uL Acanthocytes 1+ Sodium Level 131 mmol/L Potassium Level 4.7 mmol/L Chloride Level 98 mmol/L Carbon Dioxide Level 26 mmol/L Anion Gap 7.0 mmol/L 18.0 mmol/L Blood Urea Nitrogen 15 mg/dl Creatinine 0.84 mg/dl Est Creatinine Clear Calc Drug Dose 74.8 ml/min Estimated GFR () 97.2 Estimated GFR (Non- 83.9 BUN/Creatinine Ratio 17.6 Random Glucose 149 mg/dl Estimated Average Glucose 160 mg/dl Hemoglobin A1c 7.2 % Calcium Level 8.7 mg/dl Magnesium Level 1.5 mg/dl Total Bilirubin 0.2 mg/dl Direct Bilirubin 0.1 mg/dl Aspartate Amino Transf (AST/SGOT) 10 U/L Alanine Aminotransferase (ALT/SGPT) 14 U/L Alkaline Phosphatase 79 U/L Total Protein 7.1 gm/dl Albumin 2.6 gm/dl Lipase 106 U/L Bedside Hemoglobin 9.9 g/dl Bedside Hematocrit 29 % Bedside Sodium 131 mEq/L Bedside Potassium 4.7 mEq/L Bedside Chloride 95 mEq/L Bedside Total CO2 24 mEq/l Bedside Blood Urea Nitrogen 16 mg/dl Bedside Creatinine 0.8 mg/dl Bedside Glucose (other) 154 mg/dl Bedside Ionized Calcium (Adeola) 1.15 mmol/l Phenobarbital Level 18.1 mcg/mL Transferrin % Saturation % Test 07/15/17 08:10 Bedside Glucose 176 mg/dl Problem List Medical Problems: (1) [place]-vesical fistula Status: Acute (2) Diverticulitis Status: Acute (3) UTI (urinary tract infection) Status: Acute Past History BPH, coronary artery disease, diabetes, glaucoma, hypertension, seizure, urinary tract infection Past Surgical History: angioplasty with stent (coronary artery) Family History HTN Social History Hx Tobacco Use In Past Year?: Yes (cigar - 4/day) Smoking: less than 1 pack/day (several cigarrettes at night ) Alcohol: occasional Marital status: Housing status: lives with family Occupation status: retired Allergies Coded Allergies: Penicillins (Verified Allergy, Unknown, HIVES, 07/14/17) Medications Home Medications: Home Meds and Scripts Medications Dose Route/Sig Max Daily Dose Days Date Category [novofine] 8 Units INJ DAILY 07/14/17 Reported Bactrim 400MG/80MG (Sulfamethoxazole-Trimethoprim) 1 Tab Tab 1 Tab PO DAILY 07/14/17 Reported Ciprofloxacin HCl (Ciprofloxacin) 500 Mg Tab 500 Mg PO BID 10 07/14/17 Reported Lortab 5-325 mg (Hydrocodone-Acetaminophen) 1 Tab Tab 1 Tab PO QID PRN 07/14/17 Reported Ocuvite Preservision (Multivitamins/Minerals) 1 Tab Tab 1 Tab PO BID 07/14/17 Reported Phenobarbital 32.4 Mg Tab 2 Tabs PO BID 07/14/17 Reported Glucophage (Metformin Hcl) 1,000 Mg Tab 1,000 Mg PO BID 07/14/17 Reported Zestril (Lisinopril) 2.5 Mg Tab 2.5 Mg PO DAILY 07/14/17 Reported Xalatan 0.005% Oph Heidi (Latanoprost) 0.005 % Heidi 1 Drops OP HS 07/14/17 Reported Proscar (Finasteride) 5 Mg Tab 5 Mg PO DAILY 07/14/17 Reported [place]-3 (Fish Oil) 1 Ea Cap 1,200 Mg PO DAILY 07/14/17 Reported Lipitor (Atorvastatin Calcium) 10 Mg Tab 10 Mg PO DAILY 07/14/17 Reported Tenormin (Atenolol) 100 Mg Tab 100 Mg PO DAILY 07/14/17 Reported Aspirin Ec (Aspirin) 81 Mg Tab 81 Mg PO DAILY 07/14/17 Reported Inpatient Medications: Current Inpatient Medications Medications (Trade) Dose Ordered Sig/Sarthak Route Start Time Stop Time Status Last Admin Dose Admin Ioversol (Optiray 320) 100 ml UD PRN IV 07/14/17 20:00 07/18/17 19:59 Acetaminophen (Tylenol Tab) 650 mg Q4H PRN PO 07/15/17 00:15 08/14/17 00:14 Insulin Aspart (novoLOG ASPART) SLIDING SCALE If C... ACHS SC 07/15/17 07:00 08/14/17 06:59 Glucose (Glucose 40% Gel) 15-30 GRAMS 15 GRAMS... UD PRN PO 07/15/17 00:15 08/14/17 00:14 Glucose (Glucose Chew Tab) 4-8 Tablets 4 Tabl... UD PRN PO 07/15/17 00:15 08/14/17 00:14 Dextrose (Dextrose 50% 50ML Syringe) 25-50ML OF 50% DW IV FOR... UD PRN IV 07/15/17 00:15 08/14/17 00:14 Glucagon (Glucagon Inj) 1 mg UD PRN SQ 07/15/17 00:15 08/14/17 00:14 Morphine Sulfate (MoRPHine SULFATE INJ) 4 mg Q3H PRN IV 07/15/17 00:15 07/29/17 00:14 Ondansetron HCl (Zofran Inj) 4 mg Q6H PRN IV 07/15/17 00:15 08/14/17 00:14 Sodium Chloride 1,000 ml @ 60 mls/hr [id number] ONCE IV 07/15/17 00:15 07/15/17 16:54 07/15/17 01:10 60 MLS/HR Atenolol (Tenormin Tab) 100 mg DAILY PO 07/15/17 09:00 08/14/17 08:59 07/15/17 08:11 100 MG Atorvastatin Calcium (Lipitor Tab) 10 mg DAILY PO 07/15/17 09:00 08/14/17 08:59 07/15/17 08:10 10 MG Finasteride (Proscar Tab) 5 mg DAILY PO 07/15/17 09:00 08/14/17 08:59 07/15/17 08:11 5 MG Latanoprost (Xalatan Oph Soln) 1 drops HS OP 07/15/17 21:00 08/14/17 20:59 Lisinopril (Zestril Tab) 2.5 mg DAILY PO 07/15/17 09:00 08/14/17 08:59 07/15/17 08:11 2.5 MG Multivitamins/ Minerals (Multivitamin W/ Minerals Tab) 1 tab BID PO 07/15/17 09:00 08/14/17 08:59 Phenobarbital (Phenobarbital Tab) 64.8 mg BID PO 07/15/17 08:00 08/14/17 07:59 07/15/17 08:10 64.8 MG Acetaminophen/ Hydrocodone Bitart ([place] 5/325 Tab) 1 tab Q4H PRN PO 07/15/17 00:15 07/29/17 00:14 Ceftriaxone Sodium 1 gm/ Dextrose 50 ml @ 100 mls/hr Q24H IV 07/15/17 21:00 07/25/17 20:59 Metronidazole 500 mg/Prmx 100 ml @ 100 mls/hr Q8H IV 07/15/17 08:00 07/25/17 07:59 07/15/17 08:10 100 MLS/HR Review of Systems Review of Systems Constitutional: No fever, No chills Eyes: No double vision Neurological: No dizzy Endocrine: No excessive thirst Gastrointestinal: + abdominal pain, No nausea, No vomiting Cardiovascular: No chest pain Respiratory: No shortness of breath Skin: No rash Musculoskeletal: + arthritis Male : No painful urination, No blood in urine Physical Exam Vital Signs: Vital Signs Past 12 Hours Date Time Temp Pulse Resp B/P (MAP) Pulse Ox O2 Delivery O2 Flow Rate FiO2 07/15/17 08:00 95 Room Air 07/15/17 07:55 36.7 65 19 138/68 (91) 95 Room Air 07/15/17 06:21 Room Air 07/15/17 00:34 Room Air 07/15/17 00:28 36.7 66 18 146/78 07/15/17 00:25 36.7 18 146/78 (100) 100 Room Air 07/14/17 23:59 71 20 131/47 97 Room Air Physical Exam: General Appearance: no apparent distress Eyes: bilateral eyes normal inspection ENT: hearing grossly normal Neck: no JVD Respiratory/Chest: no respiratory distress, no accessory muscle use Cardiovascular: no JVD Gastrointestinal: Abdomen: RLQ tenderness, LLQ tenderness Extremities: normal inspection Neurologic/Psychiatric: alert, normal mood/affect, oriented x 3 Skin: normal color Assessment & Plan Assessment & Plan A/P: Diverticulitis, recurrent UTI, ? colovesical fistula, bladder calculi AFVSS. Management of diverticulitis per primary service. Tx UTI based on sensitivities. The pt is scheduled for outpatient cysto on 07-[address] Grijalva. Will keep as scheduled for further evaluation of possible colovesical fistula. Await general surgery input. May need cystolithopaxy as an outpatient for bladder calculi as well. Thanks for the consult. Will continue to follow along with primary service. Amendment: Patient seen and examined by myself. Significant diverticulitis with UTI and bladder stones. No air in bladder on imaging, however significant thickening of bladder. Hydronephrosis. Concern for bladder outlet obstruction possibly due to prostate and likely multifactorial. Long conversation with patient and patient's family. Highly recommended dockery catheter for maximum drainage during acute illness. Patient is hesistent to have catheter. Concern for terminal clerk renal damage. Will need cystoscopy and litholopaxy as well as workup for outlet obstruction. Due to significant nature of diverticular disease, bladder may be involved and if surgerical intervention is needed acutely or down the road, would be available if issues arise with bladder. Will plan for follow up after acute illness improves. Will need scope and assessment.
[2017-07-15] MEDS ORDERED: LIDOCAINE HCL 2% JELLY 30 ML TUBE EXT ONE (14:09)
[2017-07-15] MEDS ORDERED: NURSING VERBAL MED ORDER ONE (14:15)
--- NOTE | 2017-07-15 14:34 | Progress Note ---
Internal Med Progress Note Date of Service: Jul 15, 2017. Provider Documentation: SUBJECTIVE: Seen and examined at bedside. States having generalized abdominal pain Denies nausea, vomiting, blood in stools, chest pain, SOB OBJECTIVE: Vital Signs-as noted below Physical Exam: General Appearance:Moderately built and nourished, no apparent distress Head: normocephalic, Atraumatic Eyes: normal inspection, EOMI, PERRL Neck: supple, Trachea midline Respiratory/Chest: Normal breath sounds, CTA Cardiovascular: S1, S2, No murmur Abdomen/GI:Soft, diffuse tender, Bowel sounds present Extremities/Musculoskelatal:normal inspection, no edema Neurologic/Psych:grossly no focal neurological deficits Skin: normal color, warm Lab data as noted below. ASSESSMENT & PLAN: Complicated diverticulitis with Colovesicular fistula No signs of sepsis Continue IV antibiotics, IV fluids Clear liquid diet Appreciate Surgery Input Pain control Planned to be transferred to [facility] for evaluation and possible surgery eventually H/O recurrent UTI ?colovesical fistula, bladder calculi Possible bladder outlet obstruction possibly due to prostate and likely multifactorial Urine culture: No growth to date Continue IV ceftriaxone for now Continue Russo catheter Will need cystoscopy and litholapaxy as well as workup for outlet obstruction Appreciate Urology Input Hypertension: Stable Anemia: Likely chronic No acute bleeding issues Monitor Hb Anemia work up pending CAD S/P stents Continue home meds DM II ISS, accu checks H/O seizure disorder: Stable Continue Phenobarbital Ongoing tobacco abuse. 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 Re anemia until GI bleed ruled out. Code Status: Full code Disposition: Planned to be transferred to [facility] for colorectal surgery Eval Accepting Physician: Dr.Kristen Ramírez Vital Signs: Date Time Temp Pulse Resp B/P (MAP) Pulse Ox O2 Delivery O2 Flow Rate FiO2 07/15/17 15:06 36.6 72 18 148/75 (99) 97 Room Air 07/15/17 08:00 95 Room Air 07/15/17 07:55 36.7 65 19 138/68 (91) 95 Room Air 07/15/17 06:21 Room Air 07/15/17 00:34 Room Air 07/15/17 00:28 36.7 66 18 146/78 07/15/17 00:25 36.7 18 146/78 (100) 100 Room Air 07/14/17 23:59 71 20 131/47 97 Room Air 07/14/17 22:31 70 20 132/73 07/14/17 20:59 75 20 127/55 07/14/17 18:51 37.2 63 16 107/53 92 Room Air Lab Results: Results Past 24 Hours Test 07/14/17 20:05 07/14/17 20:39 07/15/17 00:51 07/15/17 08:10 Range/Units White Blood Count 9.57 4.8-10.8 K/uL Red Blood Count 3.59 4.7-6.1 M/uL Hemoglobin 9.8 14.0-18.0 g/dL Hematocrit 29.1 42-52 % Mean Corpuscular Volume 81.1 80-100 fL Mean Corpuscular Hemoglobin 27.3 25-34 pg Mean Corpuscular Hemoglobin Concent 33.7 32-36 g/dl Platelet Count 228 130-400 K/uL Mean Platelet Volume 8.4 7.4-10.4 fL Neutrophils (%) (Auto) 68.5 % Lymphocytes (%) (Auto) 20.6 % Monocytes (%) (Auto) 8.7 % Eosinophils (%) (Auto) 1.4 % Basophils (%) (Auto) 0.4 % Neutrophils # (Auto) 6.56 1.4-6.5 K/uL Lymphocytes # (Auto) 1.97 1.2-3.4 K/uL Monocytes # (Auto) 0.83 0.11-0.59 K/uL Eosinophils # (Auto) 0.13 0-0.5 K/uL Basophils # (Auto) 0.04 0-0.2 K/uL RDW Standard Deviation 49.5 36.4-46.3 fL RDW Coefficient of Variation 16.5 11.5-14.5 % Immature Granulocyte % (Auto) 0.4 % Immature Granulocyte # (Auto) 0.04 0.00-0.02 K/uL Acanthocytes 1+ Sodium Level 131 136-145 mmol/L Potassium Level 4.7 3.5-5.1 mmol/L Chloride Level 98 98-107 mmol/L Carbon Dioxide Level 26 21-32 mmol/L Anion Gap 7.0 18.0 16-25 mmol/L Blood Urea Nitrogen 15 7-18 mg/dl Creatinine 0.84 0.60-1.40 mg/dl Est Creatinine Clear Calc Drug Dose 74.8 ml/min Estimated GFR () 97.2 Estimated GFR (Non- 83.9 BUN/Creatinine Ratio 17.6 10-20 Random Glucose 149 70-99 mg/dl Estimated Average Glucose 160 mg/dl Hemoglobin A1c 7.2 4.5-5.6 % Calcium Level 8.7 8.5-10.1 mg/dl Magnesium Level 1.5 1.8-2.4 mg/dl Total Bilirubin 0.2 0.2-1 mg/dl Direct Bilirubin 0.1 0-0.2 mg/dl Aspartate Amino Transf (AST/SGOT) 10 15-37 U/L Alanine Aminotransferase (ALT/SGPT) 14 12-78 U/L Alkaline Phosphatase 79 45-117 U/L Total Protein 7.1 6.4-8.2 gm/dl Albumin 2.6 3.4-5.0 gm/dl Lipase 106 73-393 U/L Bedside Hemoglobin 9.9 14.0-18.0 g/dl Bedside Hematocrit 29 42-52 % Bedside Sodium 131 135-144 mEq/L Bedside Potassium 4.7 3.3-5.0 mEq/L Bedside Chloride 95 101-112 mEq/L Bedside Total CO2 24 24-31 mEq/l Bedside Blood Urea Nitrogen 16 7-18 mg/dl Bedside Creatinine 0.8 0.6-1.3 mg/dl Bedside Glucose (other) 154 70-99 mg/dl Bedside Ionized Calcium (A[place]ola) 1.15 1.12-1.32 mmol/l Phenobarbital Level 18.1 15.0-40.0 mcg/mL Bedside Glucose 176 70-99 mg/dl Test 07/15/17 11:27 07/15/17 12:08 Range/Units Bedside Glucose 225 70-99 mg/dl White Blood Count 7.02 4.8-10.8 K/uL Red Blood Count 3.50 4.7-6.1 M/uL Hemoglobin 9.4 14.0-18.0 g/dL Hematocrit 28.7 42-52 % Mean Corpuscular Volume 82.0 80-100 fL Mean Corpuscular Hemoglobin 26.9 25-34 pg Mean Corpuscular Hemoglobin Concent 32.8 32-36 g/dl Platelet Count 233 130-400 K/uL Mean Platelet Volume 8.3 7.4-10.4 fL Neutrophils (%) (Auto) 68.6 % Lymphocytes (%) (Auto) 18.7 % Monocytes (%) (Auto) 10.4 % Eosinophils (%) (Auto) 1.4 % Basophils (%) (Auto) 0.6 % Neutrophils # (Auto) 4.82 1.4-6.5 K/uL Lymphocytes # (Auto) 1.31 1.2-3.4 K/uL Monocytes # (Auto) 0.73 0.11-0.59 K/uL Eosinophils # (Auto) 0.10 0-0.5 K/uL Basophils # (Auto) 0.04 0-0.2 K/uL RDW Standard Deviation 49.6 36.4-46.3 fL RDW Coefficient of Variation 16.5 11.5-14.5 % Immature Granulocyte % (Auto) 0.3 % Immature Granulocyte # (Auto) 0.02 0.00-0.02 K/uL Absolute Reticulocyte Count 0.06 0.02-0.10 10^6/uL Percent Reticulocyte Count 1.7 0.5-2.0 % Sodium Level 132 136-145 mmol/L Potassium Level 4.6 3.5-5.1 mmol/L Chloride Level 99 98-107 mmol/L Carbon Dioxide Level 26 21-32 mmol/L Anion Gap 7.0 3-11 mmol/L Blood Urea Nitrogen 11 7-18 mg/dl Creatinine 0.79 0.60-1.40 mg/dl Est Creatinine Clear Calc Drug Dose 75.8 ml/min Estimated GFR () 99.7 Estimated GFR (Non- 86.0 BUN/Creatinine Ratio 13.4 10-20 Random Glucose 205 70-99 mg/dl Calcium Level 8.7 8.5-10.1 mg/dl Magnesium Level 2.0 1.8-2.4 mg/dl Iron Level 36 35-175 mcg/dl Total Iron Binding Capacity 168 250-450 mcg/dl Transferrin 139 200-360 mg/dl Transferrin % Saturation 18 20-50 % Ferritin 125.6 8.0-388.0 ng/ml Vitamin B12 Level 493 211-911 pg/mL Folate > 24.00 >5.38 ng/mL
[2017-07-15 15:06] VITALS: BP 148/75; PULSE 72; TEMP 36.6; O2SAT 97
[2017-07-15] MEDS: ACETAMINOPHEN 325 MG TAB PO PRN (15:31)
--- NOTE | 2017-07-15 16:05 | Discharge Summary ---
Discharge Summary Date of Service Jul 15, 2017. Discharge Summary Admission Date: Jul 14, 2017 at 22:56 Discharge Date: Jul 15, 2017 Discharge Disposition: Acute care facility ([facility]) Principal Diagnosis: Complicated diverticulitis with Colovesicular fistula Procedures: CT ABD: 1. Extensive sigmoid diverticulosis with mild pericolonic infiltration which suggests acute diverticulitis. Thick walled 6.2 x 5.3 cm stool containing abnormality along the left lateral aspect of the sigmoid colon which could reflect a giant sigmoid diverticulum or less likely walled off abscess. A few adjacent gas and fluid containing abnormalities, one of which extends to the posterior wall of the bladder and is suspicious for a developing colovesicular fistula. Associated moderate posterior bladder wall thickening. 2. Multiple bladder calculi. Mild bilateral collecting system dilatation and focal dilatation of the distal right ureter. Apparent thickening versus hyperdense material within the distal right ureter. This finding is nonspecific and may be infectious however a urothelial lesion could appear similar. This could be correlated with urinalysis and urine cytology. 3. Mild enlargement of the prostate. Consultations: Surgery, Urology Pending Studies/Follow-Up: Follow up with your surgeon at [facility] Dr. Kellen Ramírez for further evaluation and management Also follow up with Urology at [facility] for further evaluation and management Medication Reconciliation Continued Medications: Atenolol (Tenormin) 100 Mg Tab 100 MG PO DAILY, TAB Atorvastatin (Lipitor) 10 Mg Tab 10 MG PO DAILY, TAB Finasteride (Proscar) 5 Mg Tab 5 MG PO DAILY, TAB Fish Oil (Layton-3) 1 Ea Cap 1200 MG PO DAILY, CAP Hydrocodone-Acetaminophen (Lortab 5-325 mg) 1 Tab Tab 1 TAB PO QID PRN for Pain Latanoprost (Xalatan 0.005% Oph Heidi) 0.005 % Heidi 1 DROPS OP HS, #2.5 ML 3 Refills Lisinopril (Zestril) 2.5 Mg Tab 2.5 MG PO DAILY Metformin Hcl (Glucophage) 1,000 Mg Tab 1000 MG PO BID, TAB Ocuvite Preservision (Ocuvite Preservision) 1 Tab Tab 1 TAB PO BID, TAB Phenobarbital (Phenobarbital) 32.4 Mg Tab 2 TABS PO BID [novofine] () 8 UNITS INJ DAILY Discontinued Medications: Aspirin (Aspirin Ec) 81 Mg Tab 81 MG PO DAILY Ciprofloxacin (Ciprofloxacin HCl) 500 Mg Tab 500 MG PO BID for 10 Days Sulfamethoxazole-Trimethoprim (Bactrim 400MG/80MG) 1 Tab Tab 1 TAB PO DAILY, TAB Admission Information HPI (per Admitting provider): CHIEF COMPLAINT: Abdominal pain. HISTORY OF PRESENT ILLNESS: History obtained from px and ER MD. Medical history is significant for hypertension, CAD status post stenting, ongoing tobacco abuse, DM2 insulin requiring, BPH, glaucoma, seizure DSO, and recurrent UTIs. As per patient, he has had recurrent urinary tract infections in the past 4 years. He has seen urologists in the past. Recurrent UTI symptoms attributed to "getting old" as per patient account. In the last month, worsening achy lower abdominal pain with nausea, good bowel movement. No diarrhea. No bloody stools as per patient. Weight loss attributed to diabetes. Admits to dysuria. No fever no chills. Two antibiotic courses this month. Melly was seen at [facility] a few days ago. Sent home on additional antibiotics. Patient brought to the Emergency Room for worsening symptoms. CAT scan showed extensive sigmoid diverticulosis with mild pericolonic infiltration suggestive of acute diverticulitis. A 6.2 x 5.8 stool containing abnormality on the L sigmoid colon (giant sigmoid diverticulum or less likelihood of abscess). Developing colovesicular fistula, posterior bladder wall thickening, mild enlargement of the prostate, multiple bladder calculi. Patient received Ceftriaxone and Flagyl in the ER. Physical Exam (per Admitting): PHYSICAL EXAMINATION: VITAL SIGNS: Blood pressure was noted to be 107/50, pulse rate 60, respiratory rate 18, T 37 sats 92 on room air. GENERAL: Noted to be comfortable, no respiratory distress. SKIN: Pallor. HEENT: Pale palpebral conjunctivae. Dry mucosa. Chronic ptosis on the left eye. NECK: No JVD. Supple. CHEST: Clear to auscultation. HEART: Regular rate and rhythm. ABDOMEN: Hypogastric tenderness. EXTREMITIES: No edema, nontender. NEUROLOGIC: No gross focality except for ptosis on the left eye. Hospital Course Complicated diverticulitis with Colovesicular fistula No signs of sepsis Continue IV antibiotics, IV fluids Clear liquid diet Appreciate Surgery Input Pain control Planned to be transferred to [facility] for evaluation and possible surgery eventually H/O recurrent UTI ?colovesical fistula, bladder calculi Possible bladder outlet obstruction possibly due to prostate and likely multifactorial Urine culture: No growth to date Continue IV ceftriaxone for now Continue Russo catheter Will need cystoscopy and litholapaxy as well as workup for outlet obstruction Appreciate Urology Input Hypertension: Stable Anemia: Likely chronic No acute bleeding issues Monitor Hb Anemia work up pending CAD S/P stents Continue home meds DM II ISS, accu checks H/O seizure disorder: Stable Continue Phenobarbital Ongoing tobacco abuse. 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 Re anemia until GI bleed ruled out. Code Status: Full code Disposition: Planned to be transferred to [facility] for colorectal surgery Eval Accepting Physician: Dr.Kristen Ramírez Total time spent on discharge = 40 minutes This includes examination of the patient, discharge planning, medication reconciliation, and communication with other providers. Discharge Instructions Discharge Instructions Date of Service Jul 15, 2017. 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 Additional Information Patient informed of condition: Yes Advance Directives: No (Unknown) DNR: No Level of Care: Other (Med/Surg) Communicable Disease: No Prognosis: Stable Russo Catheter: Yes Instructions / Follow-Up Instructions / Follow-Up Follow up with your surgeon at [facility] Dr. Kellen Ramírez for further evaluation and management Also follow up with Urology at [facility] for further evaluation and management Current Hospital Diet Patient's current hospital diet: Clear Liquid Diet Discharge Diet Recommended Diet: Clear Liquid Diet Pending Studies Studies pending at discharge: yes List of pending studies: Fecal Occult Physician Orders On Transfer IV Therapy: IV Rocephin and flagyl IV fluids Laboratory Results Hemoglobin A1c Test 07/14/17 20:05 Range/Units Estimated Average Glucose 160 mg/dl Hemoglobin A1c 7.2 H 4.5-5.6 % Medical Emergencies . Who to Call and When: Medical Emergencies: If at any time you feel your situation is an emergency, please call 911 immediately. . Non-Emergent Contact Non-Emergency issues call your: Primary Care Provider, Surgeon, Urologist Call Non-Emergent contact if: you have a fever, your pain is not controlled, your pain is worsening, your pain is unusual for you, you have any medication questions Seek immediate medical attention if your symptoms reoccur or worsen . . "Provider Documentation" section prepared by Fernando Atkinson. . Core Measure Problem Core Measures: None
[2017-07-15 17:02] VITALS: BP 148/75; PULSE 72; TEMP 36.6; O2SAT 97
[2017-07-15] MEDS: LATANOPROST 0.005% OP SOLN 2.5 ML BTL OP SCH ×2 (20:35→20:40)
[2017-07-15] MEDS ORDERED: CEFTRIAXONE SOD INJ 1 GM in DEXTROSE 5% ADD-VANTAGE 50ML 50 ML IV SCH (21:00)
[2017-07-15] MEDS ORDERED: INSULIN GLARGINE SOLOSTAR 100 UNITS/ML 3 ML PEN SC ONE (21:08)
[2017-07-16 00:13] VITALS: BP 111/54; PULSE 64; TEMP 36.9; O2SAT 97
[2017-07-16] MEDS: ACETAMINOPHEN 325 MG TAB PO PRN (00:39)
[2017-07-16] MEDS: METRONIDAZOLE / NSS 500 MG in PREMIXED NSS 100 ML IV SCH (00:40)
[2017-07-16] MEDS ORDERED: INSULIN GLARGINE SOLOSTAR 100 UNITS/ML 3 ML PEN SC SCH (22:00)
== END 2017-07-16 02:15 | disposition short-term general hospital (02) | DRG 392 ==
LOC: C.EDB 18:20 → C.MS4W 22:56 → ENRESERV 23:36
PROVIDERS: ADMIT Internal Medicine; ATTEND Internal Medicine
DX: K57.32 Diverticulitis of large intestine without perforation or abscess without bleeding (principal); N39.0 Urinary tract infection, site not specified; N32.1 Vesicointestinal fistula; N21.0 Calculus in bladder; I10 Essential (primary) hypertension; D64.9 Anemia, unspecified; I25.10 Atherosclerotic heart disease of native coronary artery without angina pectoris; E11.9 Type 2 diabetes mellitus without complications; G40.909 Epilepsy, unspecified, not intractable, without status epilepticus; N40.0 Benign prostatic hyperplasia without lower urinary tract symptoms; H40.9 Unspecified glaucoma; F17.210 Nicotine dependence, cigarettes, uncomplicated; Z87.440 Personal history of urinary (tract) infections; Z98.61 Coronary angioplasty status; Z79.82 Long term (current) use of aspirin; Z79.84 Long term (current) use of oral hypoglycemic drugs; Z79.891 Long term (current) use of opiate analgesic; Z79.899 Other long term (current) drug therapy; Z88.0 Allergy status to penicillin; Z82.49 Family history of ischemic heart disease and other diseases of the circulatory system

== ENCOUNTER 2017-08-13 11:23 | Emergency (ER) | payer MEDICARE ==
[~2017-08-13] VITALS: Ht 182.9 cm; Wt 68.6 kg
[~2017-08-13 11:23] MED LIST changes: -ASPI81TA28 PO; -CIPR-255 PO; -METR-163 PO; -NVLNI SC; -OPTIRAY 320 IV PRN
[2017-08-13 11:33] VITALS: TEMP 36.8; Ht 182.9 cm; Wt 68.6 kg
[2017-08-13 11:39] VITALS: O2SAT 99
[2017-08-13] MEDS ORDERED: SODIUM CHLORIDE 0.9% 1000ML 1,000 ML IV STA (12:29)
[2017-08-13] MEDS ORDERED: SODIUM CHLORIDE 0.9% 1000ML 1,000 ML IV ONE (12:29)
[2017-08-13] MEDS ORDERED: CEFTRIAXONE SOD INJ 2000 MG in DEXTROSE 5% 50ML IV STA (12:37)
[2017-08-13] MEDS ORDERED: METRONIDAZOLE 500MG / NSS IV STA (12:38)
[2017-08-13 12:51] LABS: BASO % 0.3 %; BASO ABS # 0.03 K/uL (0-0.2); COMPLETE YES; EOS % 0.1 %; HEMATOCRIT 31.7 % (42-52); IG% 0.3 %; LYMPH % 9.5 %; MEAN CELL VOLUME 82.3 fL (80-100); MEAN CORPUSCULAR HEMOGLOBIN 27.5 pg (25-34); MEAN CORPUSCULAR HGB CONC 33.4 g/dl (32-36); MEAN PLATELET VOLUME 9.5 fL (7.4-10.4); MONO % 11.6 %; NEUT % 78.2 %; PLATELET COUNT 234 K/uL (130-400); RED BLOOD COUNT 3.85 M/uL (4.7-6.1); WHITE BLOOD COUNT 11.52 K/uL (4.8-10.8)
[2017-08-13 12:55] LABS: INR 1.2 (0.9-1.1); PARTIAL THROMBOPLASTIN RATIO 1.3; PROTHROMBIN TIME (PATIENT) 13.2 SECONDS (9.0-12.0)
[2017-08-13 13:05] LABS: ALT/SGPT 14 U/L (12-78); AST/SGOT 16 U/L (15-37); BLOOD UREA NITROGEN 16 mg/dl (7-18); BUN/CREATININE RATIO 17.9 (10-20); CALCIUM 8.6 mg/dl (8.5-10.1); CARBON DIOXIDE 27 mmol/L (21-32); CHLORIDE 98 mmol/L (98-107); GLUCOSE 152 mg/dl (70-99); POTASSIUM 4.3 mmol/L (3.5-5.1); SODIUM 134 mmol/L (136-145)
--- NOTE | 2017-08-13 13:09 | DIAGNOSTIC IMAGING REPORT ---
CHEST 2 VIEWS ROUTINE HISTORY: 76 years-old Male fall acute fall. COMPARISON: None available. TECHNIQUE: Frontal and lateral views of the chest FINDINGS: Cardiomediastinal and hilar silhouettes are within normal limits. There is no pneumothorax, pleural effusion or focal airspace consolidation. No overt pulmonary edema. Bones of the chest are grossly intact. No acute displaced rib fracture identified. Multilevel bridging osteophytosis is seen throughout the spine. There is atherosclerosis of the aorta. IMPRESSION: No acute cardiopulmonary process. The above report was generated using voice recognition software. It may contain grammatical, syntax or spelling errors. Electronically signed by: Gerardo Schmitz M.D. 08/13/2017 1:07 PM Dictated Date/Time: 08/13/2017 1:06 PM
[2017-08-13 13:10] LABS: ALKALINE PHOSPHATASE 70 U/L (45-117)
--- NOTE | 2017-08-13 13:11 | DIAGNOSTIC IMAGING REPORT ---
L ELBOW MIN 3 VIEWS ROUTINE HISTORY: 76 years-old Male eval for fx acute left elbow injury status post fall. COMPARISON: None available. TECHNIQUE: 3 views of the left elbow FINDINGS: Mild degenerative spurring is noted about the medial and lateral epicondyles of the distal humerus. There is no acute fracture or dislocation. Radial head appears intact. No large joint effusion. No opaque foreign body. IMPRESSION: Mild degenerative changes about the elbow without acute fracture or dislocation. The above report was generated using voice recognition software. It may contain grammatical, syntax or spelling errors. Electronically signed by: Gerardo Schmitz M.D. 08/13/2017 1:09 PM Dictated Date/Time: 08/13/2017 1:08 PM
[2017-08-13] MEDS ORDERED: ASPI81TA28 PO (14:03)
[2017-08-13] MEDS ORDERED: CIPR-255 PO (14:03)
[2017-08-13] MEDS ORDERED: METR-163 PO (14:03)
[2017-08-13] MEDS ORDERED: NVLNI SC (14:03)
--- NOTE | 2017-08-13 14:06 | EMERGENCY ROOM VISIT NOTE ---
History Report prepared by Keyanna: Bela Nugent Under the Supervision of: Dr. Les Daley M.D. 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 The patient was at Dr. Cuello's office today for a CT scan. He was leaving to go to urology for evaluation of his bladder stone. When he was in the parking lot he states that he became suddenly very weak, lost control of his legs, and collapsed. He denies any LOC. He states that he has been feeling very weak lately and he "feels exhausted all the time." The patient did not hit his head. He has a skin tear to his left elbow and denies any other injury from his fall. The patient denies any recent fevers, abdominal pain, chest pain, and shortness of breath. He does not take any blood thinners. Dr. Cuello called the ED and stated that the patient has diverticulitis and is retaining fluid that may need to be drained. He is not currently on any antibiotics. The patient was brought to the ED by ambulance. 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 A total of 10 systems reviewed and were otherwise negative. 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 Nurse's notes were reviewed and I agree with. Family History Non-pertinent due to advanced age. Social History Smoking Status: Current Every Day Smoker Alcohol Use: occasionally Drug Use: none Marital Status: Housing Status: lives with family Occupation Status: retired Current/Historical Medications Scheduled Aspirin (Aspirin Ec), 81 MG PO DAILY Atenolol (Tenormin), 100 MG PO DAILY Atorvastatin (Lipitor), 10 MG PO DAILY Ciprofloxacin Hcl (Cipro), 1 TAB PO BID Finasteride (Proscar), 5 MG PO DAILY Fish Oil (Gotebo-3), 1,200 MG PO DAILY Insulin Human NPH (Novolin N), 8 UNITS SC UD Latanoprost (Xalatan 0.005% Oph Heidi), 1 DROPS OP HS Lisinopril (Zestril), 2.5 MG PO DAILY Metformin Hcl (Glucophage), 1,000 MG PO BID Metronidazole (Flagyl), 500 MG PO BID Ocuvite Preservision (Ocuvite Preservision), 1 TAB PO BID Phenobarbital (Phenobarbital), 2 TABS PO BID Scheduled PRN Hydrocodone-Acetaminophen (Lortab 5-325 mg), 1 TAB PO QID PRN for Pain Allergies Coded Allergies: Penicillins (Verified Allergy, Unknown, HIVES, 08/13/17) Physical Exam Vital Signs Date Time Temp Pulse Resp B/P (MAP) Pulse Ox O2 Delivery O2 Flow Rate FiO2 08/13/17 16:13 68 16 130/59 96 08/13/17 14:55 71 18 119/53 96 Room Air 08/13/17 14:03 70 18 127/54 94 Room Air 08/13/17 12:15 68 08/13/17 11:39 99 Room Air 08/13/17 11:33 36.8 68 16 123/50 99 Room Air Physical Exam General: Well developed well nourished non ill appearing older male in no acute distress, breathing comfortably on room air. Normal speech HEENT: Normal cephalic atraumatic. Pupils are equal round and reactive to light. Extraocular movements are intact. Oropharynx is pink with moist mucous membranes. No swelling of the mouth lips or tongue. Neck: Supple with a midline trachea. No meningeal signs or stiffness, no JVD or bruits. No Stridor. Chest: Clear to auscultation bilaterally. No wheezes or rhonchi. No increased work of breathing. Heart: regular rate and rhythm. Abdomen: Soft, minimally diffusely tender, nondistended without rebound guarding or rigidity. Extremities: Abrasion on left elbow, FROM. No cyanosis clubbing or edema. No calf tenderness or assymetry Spine/Back. Non tender to palpation. No CVA tenderness Skin: Good turgor without rashes. Neurologic exam: Cranial nerves two through 12 are intact. Motor and sensation are intact and symmetrical throughout. Medical Decision & Procedures ER Provider Diagnostic Interpretation: Radiology results as stated below per my review and radiologist interpretation: CHEST 2 VIEWS ROUTINE HISTORY: 76 years-old Male fall acute fall. COMPARISON: None available. TECHNIQUE: Frontal and lateral views of the chest FINDINGS: Cardiomediastinal and hilar silhouettes are within normal limits. There is no pneumothorax, pleural effusion or focal airspace consolidation. No overt pulmonary edema. Bones of the chest are grossly intact. No acute displaced rib fracture identified. Multilevel bridging osteophytosis is seen throughout the spine. There is atherosclerosis of the aorta. IMPRESSION: No acute cardiopulmonary process. The above report was generated using voice recognition software. It may contain grammatical, syntax or spelling errors. Electronically signed by: Gerardo Schmitz M.D. 08/13/2017 1:07 PM Dictated Date/Time: 08/13/2017 1:06 PM L ELBOW MIN 3 VIEWS ROUTINE HISTORY: 76 years-old Male eval for fx acute left elbow injury status post fall. COMPARISON: None available. TECHNIQUE: 3 views of the left elbow FINDINGS: Mild degenerative spurring is noted about the medial and lateral epicondyles of the distal humerus. There is no acute fracture or dislocation. Radial head appears intact. No large joint effusion. No opaque foreign body. IMPRESSION: Mild degenerative changes about the elbow without acute fracture or dislocation. The above report was generated using voice recognition software. It may contain grammatical, syntax or spelling errors. Electronically signed by: Gerardo Schmitz M.D. 08/13/2017 1:09 PM Dictated Date/Time: 08/13/2017 1:08 PM Laboratory Results 08/13/17 12:15 Red Blood Count 3.85, Mean Corpuscular Volume 82.3, Mean Corpuscular Hemoglobin 27.5, Mean Corpuscular Hemoglobin Concent 33.4, Mean Platelet Volume 9.5, Neutrophils (%) (Auto) 78.2, Lymphocytes (%) (Auto) 9.5, Monocytes (%) (Auto) 11.6, Eosinophils (%) (Auto) 0.1, Basophils (%) (Auto) 0.3, Neutrophils # (Auto ) 9.00, Lymphocytes # (Auto) 1.10, Monocytes # (Auto) 1.34, Eosinophils # (Auto ) 0.01, Basophils # (Auto) 0.03 08/13/17 12:15 Test 08/13/17 12:15 White Blood Count 11.52 K/uL (4.8-10.8) Red Blood Count 3.85 M/uL (4.7-6.1) Hemoglobin 10.6 g/dL (14.0-18.0) Hematocrit 31.7 % (42-52) Mean Corpuscular Volume 82.3 fL (80-100) Mean Corpuscular Hemoglobin 27.5 pg (25-34) Mean Corpuscular Hemoglobin Concent 33.4 g/dl (32-36) Platelet Count 234 K/uL (130-400) Mean Platelet Volume 9.5 fL (7.4-10.4) Neutrophils (%) (Auto) 78.2 % Lymphocytes (%) (Auto) 9.5 % Monocytes (%) (Auto) 11.6 % Eosinophils (%) (Auto) 0.1 % Basophils (%) (Auto) 0.3 % Neutrophils # (Auto) 9.00 K/uL (1.4-6.5) Lymphocytes # (Auto) 1.10 K/uL (1.2-3.4) Monocytes # (Auto) 1.34 K/uL (0.11-0.59) Eosinophils # (Auto) 0.01 K/uL (0-0.5) Basophils # (Auto) 0.03 K/uL (0-0.2) RDW Standard Deviation 52.7 fL (36.4-46.3) RDW Coefficient of Variation 17.2 % (11.5-14.5) Immature Granulocyte % (Auto) 0.3 % Immature Granulocyte # (Auto) 0.04 K/uL (0.00-0.02) Prothrombin Time 13.2 SECONDS (9.0-12.0) Prothromb Time International Ratio 1.2 (0.9-1.1) Activated Partial Thromboplast Time 33.0 SECONDS (21.0-31.0) Partial Thromboplastin Ratio 1.3 Anion Gap 9.0 mmol/L (3-11) Est Creatinine Clear Calc Drug Dose 65.6 ml/min Estimated GFR () 94.5 Estimated GFR (Non- 81.5 BUN/Creatinine Ratio 17.9 (10-20) Calcium Level 8.6 mg/dl (8.5-10.1) Total Bilirubin 0.4 mg/dl (0.2-1) Direct Bilirubin 0.2 mg/dl (0-0.2) Aspartate Amino Transf (AST/SGOT) 16 U/L (15-37) Alanine Aminotransferase (ALT/SGPT) 14 U/L (12-78) Alkaline Phosphatase 70 U/L (45-117) Total Creatine Kinase 27 U/L (39-308) Creatine Kinase MB < 0.5 ng/ml (0.5-3.6) Creatine Kinase MB Ratio (0-3.0) Total Protein 6.8 gm/dl (6.4-8.2) Albumin 2.5 gm/dl (3.4-5.0) Lipase 68 U/L (73-393) Laboratory studies as stated above per my review. Medications Administered Medications (Trade) Dose Ordered Sig/Sarthak Route Start Time Stop Time Status Last Admin Dose Admin Sodium Chloride 1,000 ml @ 999 mls/hr Q1H1M STAT IV 08/13/17 12:29 08/13/17 13:29 DC 08/13/17 13:14 999 MLS/HR Sodium Chloride 1,000 ml @ 150 mls/hr Q6H40M ONCE IV 08/13/17 12:29 08/13/17 16:55 DC 08/13/17 13:14 150 MLS/HR Ceftriaxone Sodium 2000 mg/ Dextrose 70 ml @ 140 mls/hr NOW STAT IV 08/13/17 12:37 08/13/17 13:06 DC 08/13/17 13:15 140 MLS/HR Metronidazole 500 mg/Prmx 100 ml @ 100 mls/hr NOW STAT IV 08/13/17 12:38 08/13/17 13:37 DC 08/13/17 13:15 100 MLS/HR ECG Indication: weakness Rate (beats per minute): 69 Rhythm: normal sinus Findings: nonspecific-ST abn, no ectopy Comparison ECG Date: no prior available ED Course 1212: Past medical records reviewed. The patient was evaluated in room C10, and a complete history and physical examination were performed. 1229: NSS 1000 ml @ 150 mls/hr IV, NSS 1000 ml @ 999 mls/hr IV 1237: Ceftriaxone Sodium 2000 mg/Dextrose 70 ml @ 140 mls/hr IV 1238: Metronidazole 500 mg/Prmx IV 1350: I updated the patient and his family on the results. The patient is requesting transfer to [facility], as he does not want to go to [facility] for further treatment. 1423: I spoke with Dr. Rudolph of trauma surgery at [facility]. We discussed the patient's case. The patient was accepted to their facility for further management. 1429: I reassessed the patient at this time. He is resting comfortably. I discussed the results and treatment plan with the patient and his family. I answered all pertaining questions that they had. They expressed understanding and verbalized agreement. The patient does not want to be transferred and would like to go by private vehicle. He will be discharged with strict instructions to go directly to [facility]. Medical Decision Differential diagnoses includes diverticular abscess, sepsis, arrhythmia, cardiac disease, electrolyte or metabolic abnormality, trauma. This patient comes in as described above. He was placed in room C 10. He is here for treatment and evaluation of a diverticular abscess. His surgeon, Dr. Cuello, called me and sent him over to the ER. This gentleman has a known diverticular abscess and on CAT scan today's gotten larger. They feel he needs to go back to [place] for interventional radiology. Apparently he just finished antibiotic course and they did not drain in the last time he was there. He also had an ear syncopal episode in the parking lot where he got vasovagal he said he got weak when walking he skinned his elbow. In light of this, an extensive workup was done. He had stable vital signs here. He did not hit his head. IV access was established and he was hydrated with IV normal saline .EKG shows some nonspecific ST abnormalities but he has no elevation of troponin and no chest pain. Chest x-ray was unremarkable. elbow x-ray was unremarkable. He has no acute electrolyte or metabolic abnormalities. White count is mildly elevated. I talked to the patient and his at length. He was given IV antibiotics here with IV Rocephin and Flagyl. I told him the surgeons plan but he adamantly refuses to go back to [place]. He is from [place] and would like to go to [facility]. I called and talked to Dr. Rudolph, who is a surgeon at [facility] , she has accepted the patient. They do have interventional radiology at [facility] which we do not have here. The patient has remained stable and I called the ambulance but when they got here the patient refused to go by ambulance as co-pay was going to be quite large. He's been stable and I think is reasonable to let his drive him there as long as he was taken out to the car and she get somebody to help him in when he gets [facility]. A copy was made of all his labs and imaging he was sent to [facility] for further treatment and evaluation and likely interventional radiology drainage of his diverticular abscess. The patient and his were happy with the plan. Medication Reconcilliation Current Medication List: was personally reviewed by me Blood Pressure Screening Patient's blood pressure: Normal blood pressure Consults Time Called: 1421 Consulting Physician: Dr. Rudolph Returned Call: [address] Rudolph of trauma surgery at [facility]. We discussed the patient's case. The patient was accepted to their facility for further management. Impression Primary Impression: Colonic diverticular abscess Additional Impressions: Near syncope Elbow contusion Scribe Attestation The scribe's documentation has been prepared under my direction and personally reviewed by me in its entirety. I confirm that the note above accurately reflects all work, treatment, procedures, and medical decision making performed by me. Departure Information Dispostion Home / Self-Care Referrals Jakob Castaneda PA-C (PCP) Forms HOME CARE DOCUMENTATION FORM, IMPORTANT VISIT INFORMATION Patient Instructions My [facility] Additional Instructions Go straight to [facility] emergency Department. They are expecting you. Do not eat or drink any food or liquids. Have them help you out of the car when you get there Problem Qualifiers Additional Impressions: Elbow contusion Encounter type: initial encounter Laterality: left Qualified Codes: S50.02XA - Contusion of left elbow, initial encounter
[2017-08-13 16:13] VITALS: BP 130/59; PULSE 68; O2SAT 96
== END 2017-08-13 16:15 | disposition short-term general hospital (02) ==
LOC: EDBD 11:23 → C.EDC 11:23
DX: K57.20 Diverticulitis of large intestine with perforation and abscess without bleeding (principal); F17.200 Nicotine dependence, unspecified, uncomplicated; Z87.440 Personal history of urinary (tract) infections; Z79.4 Long term (current) use of insulin; Z79.82 Long term (current) use of aspirin; Z79.84 Long term (current) use of oral hypoglycemic drugs; Z79.899 Other long term (current) drug therapy; Z88.0 Allergy status to penicillin; K65.1 Peritoneal abscess; R93.3 Abnormal findings on diagnostic imaging of other parts of digestive tract; N28.89 Other specified disorders of kidney and ureter

== ENCOUNTER → 2017-08-13 | Outpatient (CLI) | payer MEDICARE ==
[2017-08-04 12:42] LABS: BLOOD UREA NITROGEN 14 mg/dl (7-18); BUN/CREATININE RATIO 14.3 (10-20); CREATININE 0.97 mg/dl (0.60-1.40)
[~2017-08-13] MED LIST changes: +ASPI81TA28 PO; +ATEN-175 PO; +ATOR10TA88 PO; +CIPR-255 PO; -CPR/500 PO; +FINA5TAB PO; +HYDR-4330 PO; +LATA0.5S OP; +LISI-789 PO; +METF-384 PO; +METR-163 PO; +MULT-190 PO; +NVLNI SC; +OMEG10007 PO; +OPTIRAY 320 IV PRN; +PHEN32.44 PO; +novofine INJ
--- NOTE | 2017-08-13 10:37 | DIAGNOSTIC IMAGING REPORT ---
ABDOMEN AND PELVIS CT WITH ORAL CONTRAST CT DOSE: 323.37 mGycm HISTORY: K65.1 Abscess, abdomen [facility] 07/30/17 11:37 a TECHNIQUE: Multiaxial CT images of the abdomen and pelvis were performed following the use of oral contrast. A dose lowering technique was utilized adhering to the principles of ALARA. COMPARISON STUDY: Abdomen and pelvis CT 07/14/2017. FINDINGS: Mild interstitial thickening seen within the lung bases posteriorly. No suspicious lytic or blastic osseous lesions. Stable subcentimeter hypodense lesion within the left hepatic lobe. No new hepatic lesions. The spleen, pancreas, adrenal glands, kidneys, and gallbladder are unremarkable. No retroperitoneal lymphadenopathy. Calcified plaque within the normal caliber abdominal aorta. Multiple bladder stones are again noted. Persistent thickening within the mid sigmoid colon. Mild pericolonic fat straining at the sigmoid colon. Persistent focal dilatation of the distal right ureter best in image 341. There is mild thickening of the bladder dome. Increase in size in the extraluminal gas and fluid collection inferior to the mid sigmoid colon which abuts the bladder dome. This measures 6.5 x 4.3 cm, previously measuring 1.2 cm. This is consistent with a contained perforation/pericolonic abscess. No evidence for a colovesical fistula at this time. The additional thick-walled gas and fluid collection along the left side of the mid sigmoid colon is not significantly changed and measures 6.4 x 5.1 cm. This may also represent a contained perforation/abscess versus acute diverticulitis involving a giant diverticulum. Irregular thickening within the distal sigmoid colon on image 305 has a masslike appearance. No evidence for bowel obstruction. IMPRESSION: 1. The thick-walled gas and fluid collection along the left side of the mid sigmoid colon is not significantly changed and measures 6.4 x 5.1 cm. This favors acute diverticulitis involving a giant diverticulum. However, a contained perforation/abscess could also have a similar appearance. 2. Increase in size in the extraluminal gas and fluid collection inferior to the mid sigmoid colon which abuts the bladder dome. This measures 6.5 x 4.3 cm, previously measuring 1.2 cm. This is consistent with a contained perforation/pericolonic abscess. No evidence for colovesical fistula at this time. However, there is thickening of the adjacent bladder dome which is likely reactive. 3. Irregular thickening within the mid to distal sigmoid colon which has a masslike appearance. This is similar to the prior study. Therefore, a colonic mass is the diagnosis of exclusion. Sigmoidoscopy is recommended for further evaluation. 4. Persistent focal dilatation of the distal right ureter . Therefore, an underlying urothelial malignancy cannot be excluded. 5. Additional findings as described above. Electronically signed by: Alfredo Lester M.D. 08/13/2017 10:36 AM Dictated Date/Time: 08/13/2017 10:22 AM
== END | disposition home or self-care (01) ==
LOC: C.CTS 09:18
PROVIDERS: ATTEND Urology
DX: K65.1 Peritoneal abscess (principal); R93.3 Abnormal findings on diagnostic imaging of other parts of digestive tract; N28.89 Other specified disorders of kidney and ureter